=== PATIENT | male | born 1990 | race Caucasian/White ===

== ENCOUNTER 2020-10-01 20:09 | Emergency (ER) | payer SELFPAY ==
[2020-10-01 20:13] VITALS: BP 164/82; PULSE 108; RESP 18; TEMP 36.7; O2SAT 99
--- NOTE | 2020-10-01 20:19 | W.ED.GENAD ---
Discharge Plan Disposition Patient Disposition: HOME Condition: Fair Discharge Details Clinical Impression: Frostbite, Trench foot, Blister Primary Care Provider: Unknown,Unknown ED Provider: Shirley Layton Discharge Instructions Instructions: Frostbite (ED) Additional Instructions: Please keep feet clean and dry. Try to protect the blister to prevent this from popping. If this was open, please monitor for signs of infection including redness, warmth, drainage, increased pain, fever/chills. If you develop any of these or other new/worsening symptoms to seek care urgently once again. I have referred you to a spinner cap frame, Dr. Robb. Please call tomorrow to schedule appointment, number listed below. Please take the full dose of aspirin daily. Please follow-up with primary care in 2 weeks for reevaluation. If you develop any new or worsening symptoms to seek care urgently once again. Please continue with open toed shoe all blister persist. However, if you are outside or in an area where you could potentially be exposed to increased cold, please try to protect your feet as much as possible to prevent refreezing. Referrals: Jordy Bruno DPM [[facility] STAFF PHYSICIAN] - Discharge Data Discharge Date/Time-TO BE ENTERED AT DEPARTURE: 10/01/20 21:00 Medical Decision Making Patient is a pleasant 30-year-old male presenting with chief complaint of great toe pain bilaterally. He reports the pain began after playing hockey for 4 hours Wednesday evening. He reports that during that time, it was very cold outside when his feet got wet. States that evening when he went to bed the pain increased dramatically. He stated that was the time of maximal discomfort. During that time, he did note discoloration of the toes. States they were initially very white. He subsequently developed blisters on the medial aspect of both toes. Also noted some discoloration. He has been having pain, particularly with walking. Denies any fevers or chills. Has not had episodes like this historically. On exam, patient is resting comfortably. He has 2+ distal pulses. A large blister is noted on the right great toe and a smaller on the left. He does have intact capillary refill. He does have 1 small circular petechial appearing lesion at the distal tip of the right toe. Remaining toes are dry and peeling. His exam is consistent with trench foot as well as frostbite. Is out of the window of any aggressive treatment. I did have Dr. Sloan evaluate the patient as well. He advised starting the patient on aspirin. We did discuss follow-up with podiatry. He also advised having the patient wear a postop shoe to keep the blister intact and present infection. Strict return precautions were discussed, in particular signs of infection. He will follow-up with podiatry. Care of his feet were discussed at length. All his questions concerns were addressed and he is in agreement with this plan. HPI General Mode of arrival: ambulatory. Date/Time Provider Initiated Documentation: 10/01/20 20:18. Limitations to Documentation: no limitations. Information obtained by: patient and RN notes reviewed. History of Present Illness 30 year old M presents to the emergency department with the chief complaint of Blisters and pain in bilateral great toes, described as severe, Quality is described as burning, and is localized to the left, right and lower extremity. Patient reports no radiation. Patient started experiencing this day(s) (Wednesday) and it has been constant. Immobilization improves symptom(s), Movement worsens symptoms . Patient notes no other symptoms.; denies fever/chills. Patient did receive the following treatments prior to arrival, none General Stated Complaint: RashLesion KARISSA: 4 Review of Systems Constitutional Constitutional: Reports as per HPI, Denies chills, Denies fever(s), Denies headache(s) and Denies weakness ENT Ears, Nose, Mouth, and Throat: Denies headache(s) Cardiovascular Cardiovascular: Reports as per HPI Respiratory Respiratory: Reports as per HPI and Denies cough Musculoskeletal Musculoskeletal: Reports as per HPI and Denies tingling Integumentary/Breasts Skin/Breast: Reports as per HPI, Reports sores, Reports unusual bruising and Reports wounds Neurologic Neurologic: Reports as per HPI, Denies headache(s), Denies tingling, Denies paresthesias and Denies weakness [facility] Social History Smoking/Tobacco Use Status: Current every day Smoking risk assessment performed?: Yes Alcohol Intake: current Alcohol Intake frequency: a few times a week Substance use type: marijuana Current gender identity: male Do you feel safe at home: Yes Do you feel safe in your relationship?: Yes Exam Const General: cooperative, healthy appearing, comfortable, no acute distress, well developed and well groomed Nutritional Appearance: average body habitus and well nourished Orientation: alert and awake Resp Effort & Inspection: normal respiratory effort, able to speak in complete sentences and no respiratory distress Cardio Rate: regular rate Rhythm: regular rhythm Skin General skin exam: ecchymosis and other (as below) Neuro General: patient alert and patient awake Cognition: normal cognition Speech: speech normal Gait: antalgic Motor: muscle tone normal throughout Sensory Exam: no sensory deficits noted Extrem Ankle/foot/toe images: 1. Area of large blister. Appears to be clear fluid. At the tip of the toe, along the blister edge, there is an ecchymotic discoloration. He does have good capillary refill. Pain with palpation over the area of discoloration. He is 1 circular petechial appearing 2 mm area at the very tip of the toe. Nail is uninvolved. 2. Area of blister, less prominent than that of the other side. Appears to be clear fluid. At the tip of the toe, along the blister edge, there is an ecchymotic discoloration. He does have good capillary refill. Pain with palpation over the area of discoloration. Nail is uninvolved. Psych Appearance: grossly normal and well kempt Mental Status: mental status grossly normal Speech and Movement: speech and movement normal Course Vital Signs Vital signs: Vital Signs Temperature 36.7 C 10/01/20 20:13 Pulse 108 H 10/01/20 20:13 Respiratory Rate 18 10/01/20 20:13 Blood Pressure 164/82 H 10/01/20 20:13 Pulse Oximetry 99 10/01/20 20:13 Temperature 36.7 C 10/01/20 20:13 Temperature Source Temporal Artery Scan 10/01/20 20:13 Pulse 108 H 10/01/20 20:13 Respiratory Rate 18 10/01/20 20:13 Respiratory Effort 10/01/20 20:16 Blood Pressure 164/82 H 10/01/20 20:13 Pulse Oximetry 99 10/01/20 20:13 Oxygen Delivery Method Room Air 10/01/20 20:13 Oxygen Flow Rate 0 10/01/20 20:13
--- NOTE | 2020-10-01 21:01 | NUR.NOTE ---
sent referral to dr. Dylan del valle for 1 to 2 weeks [facility]
== END 2020-10-01 21:00 | disposition home or self-care (01) ==
PROVIDERS: Emergency Provider Physician Assistant
DX: S90.421A Blister (nonthermal), right great toe, initial encounter (principal); T33.831A Superficial frostbite of right toe(s), initial encounter; T33.832A Superficial frostbite of left toe(s), initial encounter; T69.021A Immersion foot, right foot, initial encounter; T69.022A Immersion foot, left foot, initial encounter; X58.XXXA Exposure to other specified factors, initial encounter
CPT/HCPCS: 99282